=== PATIENT | female | born 1990 | race Caucasian/White ===

== ENCOUNTER 2021-09-03 18:47 | Outpatient (REF) | payer OTHER, SELFPAY | END 2021-09-03 18:48 | disposition home or self-care (01) | LOC: HO.LNP 18:47 | PROVIDERS: Visit Provider Hospitalist | DX: Z20.822 Contact with and (suspected) exposure to COVID-19 (principal) | CPT/HCPCS: U0003; U0005 ==

== ENCOUNTER 2022-04-03 18:28 | Emergency (ER) | payer OTHER, SELFPAY ==
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
[2022-04-03 18:51] VITALS: BP 126/88; PULSE 77; RESP 15; TEMP 36.6; O2SAT 97; BMI 26.7
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
[2022-04-03 19:45] LABS: Appearance Urine CLEAR; Color Urine YELLOW; Glucose Urine UA NEG (NEG); Leukocyte Esterase Urine NEG (NEG); Nitrite Urine NEG (NEG); Urine Blood NEG (NEG); Urine Ketones NEG (NEG); Urine Protein NEG (NEG-TRACE)
[2022-04-03 19:46] LABS: UPreg QC Valid YES; Urine Pregnancy NEGATIVE (NEGATIVE)
[2022-04-03 20:22] VITALS: BP 126/76; PULSE 74; RESP 16; TEMP 36.9; O2SAT 98
[2022-04-03] MEDS: Ibuprofen 800 MG TABLET PO (20:43)
--- NOTE | 2022-04-03 20:44 | PC.NURSE ---
medicated per provider order.
== END 2022-04-03 23:09 | disposition home or self-care (01) ==
PROVIDERS: Emergency Provider Emergency Medicine; PCP Internal Medicine
DX: Z04.1 Encounter for examination and observation following transport accident (principal); M62.830 Muscle spasm of back; M54.2 Cervicalgia; M54.50 Low back pain, unspecified; R51.9 Headache, unspecified
CPT/HCPCS: 70450; 72100; 72125; 81003; 81025; 99284

== ENCOUNTER 2022-07-05 21:56 | Emergency (ER) | payer OTHER, SELFPAY ==
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
[2022-07-05 22:07] VITALS: BP 127/87; PULSE 87; RESP 16; TEMP 36.6; O2SAT 99; BMI 25.7
== END 2022-07-06 06:48 | disposition left against medical advice (07) ==
PROVIDERS: Emergency Provider Emergency Medicine
DX: S60.041A Contusion of right ring finger without damage to nail, initial encounter (principal); W50.1XXA Accidental kick by another person, initial encounter; Y93.66 Activity, soccer; Y92.322 Soccer field as the place of occurrence of the external cause; Y99.9 Unspecified external cause status
CPT/HCPCS: 73120; 99281; 99283